=== PATIENT | female | born 1950 | race Caucasian/White ===

== ENCOUNTER 2017-02-02 12:01 | Outpatient (CLI) | payer MEDICARE, BC ==
[2017-02-02 13:07] LABS: Free T4 (Free Thyroxine) 0.87 ng/dL (0.70-1.48); Thyroid Stimulating Hormone 1.5578 uIU/mL (0.35-4.94); Vitamin D, 25 Hydroxy 8.6 ng/ml (> 30.0)
[2017-02-02 13:37] LABS: ALT (SGPT) 10 U/L (8-55); AST (SGOT) 16 U/L (5-34); Albumin 3.8 g/dL (3.4-4.8); Alkaline Phosphatase 139 U/L (40-150); Anion Gap 13 mmol/L (10-20); BUN (Urea Nitrogen) 19 mg/dL (9.8-20.1); Bilirubin, Total 0.3 mg/dL (0.2-1.2); Calc. Creatinine Clearance 0 mL/min (70-130); Calcium 9.1 mg/dL (7.8-10.44); Carbon Dioxide 24 mmol/L (23-31); Cardiac Risk 2.8 (Less than 4.5); Chloride 107 mmol/L (98-107); Cholesterol 231 mg/dl (< 200 Desired); Estimated GFR-MDRD 51; Globulin 2.4 g/dL (2.4-3.5); Glucose 91 mg/dL (80-115); HDL Cholesterol 82 mg/dL (>60 Neg Risk); LDL Cholesterol, Calculated 134 mg/dL; Magnesium 1.7 mg/dL (1.6-2.6); Potassium 4.2 mmol/L (3.5-5.1); Protein, Total 6.2 g/dL (6.0-8.3); Sodium 140 mmol/L (136-145); Triglycerides 77 mg/dL (Less than 150)
[2017-02-02 14:00] LABS: Bilirubin Negative (Negative); Blood, Urine Negative (Negative); Clarity Clear (Clear); Glucose, Urine (Dipstick) Negative (Negative); Leukocyte Trace (Negative); Nitrite Negative (Negative); Protein, Urine (Dipstick) Negative (Neg-Trace); Urobilinogen 0.2 mg/dL (0.2-1.0); pH, Urine 5.5 (5.0-9.0)
[2017-02-02 14:14] LABS: #Basophils 0.1 thou/uL (0.0-0.2); #Eosinphils 0.3 thou/uL (0.0-0.7); #Lymphocytes 1.9 thou/uL (1.20-3.40); #Monocytes 0.6 thou/uL (0.11-0.59); %Basophils 1.4 % (0.0-1.0); %Eosinophils 3.9 % (0.0-10.0); %Lymphocytes 23.7 % (21.0-51.0); %Monocytes 7.3 % (0.0-10.0); %Neutrophils 63.7 % (42.0-75.0); Giant Platelets SLIGHT; Hemoglobin 9.4 g/dL (12.0-16.0); Hypochromia SLIGHT = 6-15 cells (100X) (0-5/hpf); MDiff Complete? YES; Mean Corpuscular HGB CONC 30.1 g/dL (32.0-36.0); Mean Corpuscular Hemoglobin 24.1 pg (27.0-31.0); Mean Corpuscular Volume 80.2 fl (81.0-99.0); Mean Platelet Volume 8.5 fL (7.4-10.4); PLT Morphology Comment Appears Adequate; Platelet Count 300 thou/uL (130-400); RBC Distribution Width 15.4 % (11.5-14.5); Red Blood Cell (RBC) Count 3.89 mill/uL (4.20-5.40); White Blood Cell (WBC) Count 7.8 thou/uL (4.8-10.8)
[2017-02-02 14:21] LABS: RBC/HPF 0-3 HPF (0-3); Squamous Epithelial 0-3 HPF (0-3); WBC/HPF 0-3 HPF (0-3)
[2017-02-02 17:29] LABS: Iron 41 ug/dL (50-170); Iron Binding Capacity, Total 430 mcg/dL (265-497)
[2017-02-02 17:48] LABS: Ferritin 7.9 ng/mL (10-291)
[2017-02-02 17:57] LABS: Folate (Folic Acid) 11.3 ng/mL (7.0-31.4)
== END 2017-02-02 12:02 | disposition home or self-care (01) ==
LOC: NAV LAB 12:01
PROVIDERS: ATTEND Family Medicine
DX: E55.9 Vitamin D deficiency, unspecified (principal); I10 Essential (primary) hypertension; R53.83 Other fatigue; K91.2 Postsurgical malabsorption, not elsewhere classified
CPT/HCPCS: 36415; 80053; 80061; 81001; 82306; 82607; 82728; 82746; 83540; 83550; 83735; 84439; 84443; 84481; 84630; 85025